=== PATIENT | female | born 1980 | race Caucasian/White ===

== ENCOUNTER → 2023-05-02 12:54 | Outpatient (CLI) | payer OTHER, SELFPAY ==
--- NOTE | 2023-05-02 13:06 | CT_ITS ---
FINAL REPORT CLINICAL HISTORY: LOOK AT LEFT SUBCLAVIAN AND THORACIC OUTLETS COMPARISON: None FINDINGS: Thin section axial CT images of the chest were obtained with contrast. 3D reformatted images were also obtained. This study was performed with techniques to keep radiation doses as low as reasonably achievable (ALARA). Individualized dose reduction techniques using automated exposure control or adjustment of mA and/or kV according to the patient's size were employed. There is no evidence of pulmonary embolism. There is no evidence of thoracic aortic aneurysm or dissection. Subclavian arteries appear normal. A portion of the right subclavian artery is suboptimally visualized secondary to streak artifact in the adjacent vein. There is no evidence of mediastinal or hilar mass or adenopathy. There is no evidence of pulmonary mass or nodule. Bilateral apical scarring. Limited images of the upper abdomen are unremarkable. Postcholecystectomy. IMPRESSION: No evidence of pulmonary embolism. Subclavian arteries appear normal. However, a portion of the right subclavian artery is suboptimally visualized secondary to streak artifact. Reviewed, Interpreted and Dictated by Amandeep Mahoney III, MD Transcribed by Kandy Villaseñor Authenticated and [facility]
[2023-05-02 13:33] LABS: Blood Urea Nitrogen 11 mg/dl (7-17); Estimated Glomerular Filt Rate 91 ml/min (>60); GFR (African American) 111 ML/MIN (>60)
== END ==
PROVIDERS: Visit Provider Internal Medicine
DX: R07.89 Other chest pain (principal); K21.9 Gastro-esophageal reflux disease without esophagitis; R20.0 Anesthesia of skin; R68.89 Other general symptoms and signs
CPT/HCPCS: 36415; 71275; 82565; 84520; Q9967

== ENCOUNTER 2023-06-13 07:36 | Day surgery (SDC) | payer OTHER, SELFPAY ==
[2023-06-13] VITALS (12 sets, daily range): BP systolic 128–147; BP diastolic 73–97; PULSE 73–98; RESP 17–18; O2SAT 97–100; BMI 25.5
--- NOTE | 2023-06-13 07:03 | IR_ITS ---
APPROVED REPORT Patient Location: Outpatient Employment Coach: ANTONIA Au RT (R) PROCEDURES Left heart catheterization Left ventriculogram Selective coronary angiogram INDICATION Angina pectoris, Abnormal stress test Informed consent was obtained prior to the procedure. COMPLICATIONS NONE Estimated Blood Loss: LESS THAN 10 ML TECHNIQUE One percent lidocaine used to anesthetize the right anterior aspect of the wrist. The right radial artery was accessed via the Seldinger technique. A 6 Thai sheath was placed in the right radial artery. 2.5 mg of Verapamil, 800 mcg of nitroglycerin, 1mg Lidocaine and 5000 U Heparin were given through the arterial sheath. The papa catheter was also used to perform left heart catheterization, left ventriculogram and selective coronary angiogram. At the end of the procedure the sheath was removed good hemostasis was achieved using Traclet band, patient was transferred to the postop holding area in stable condition. ANGIOGRAPHIC RESULTS The left main artery Normal The left anterior descending artery Normal The circumflex artery Normal The right coronary artery Dominant normal The SAGASTUME ventriculogram reveals Normal 65% The left ventricular end-diastolic pressure Normal 10 mmHg IMPRESSION Normal coronary arteries Normal ejection fraction Normal left ventricular end-diastolic pressure PLAN 1. Evaluation of noncardiac symptomatology Electronically signed by : Phuc Sierra MD 06/13/2023 09:41:23
[2023-06-13 08:07] LABS: Basophils % 0.5 % (0.1-2.0); Eosinophils # 0.2 K/mm3 (0.0-0.4); Eosinophils % 2.7 % (0.1-12.0); Hematocrit 44.1 % (37.0-47.0); Hemoglobin 14.5 g/dL (12.2-16.2); Lymphocytes # 1.7 K/mm3 (0.7-4.5); Mean Corpuscular HGB Conc 32.9 g/dL (31.8-35.4); Mean Corpuscular Hemoglobin 31.1 pg (27.0-31.2); Mean Corpuscular Volume 94.5 fl (81-99); Mean Platelet Volume 7.3 fl (7.4-10.4); Monocytes # 0.3 K/mm3 (0.1-1.0); Monocytes % 4.9 % (1.7-9.3); Neutrophils # 3.6 K/mm3 (1.8-7.8); Neutrophils % 62.9 % (37.0-80.0); Platelet Count 367 K/mm3 (142-424); Red Blood Count 4.67 M/mm3 (4.20-5.40); Red Cell Distribution Width 12.6 % (11.5-17.5); White Blood Count 5.8 K/mm3 (4.8-10.8)
[2023-06-13 08:40] LABS: Sodium 140 mmol/L (136-145)
[2023-06-13 08:41] LABS: Anion Gap 12.6 mEq/L (5-15); Blood Urea Nitrogen 9 mg/dl (7-17); Calcium 8.8 mg/dl (8.4-10.2); Carbon Dioxide 26 mmol/L (22.0-30.0); Chloride 105 mmol/L (98-107); Creatinine Clearance Estimated 97 mL/min (50-200); Estimated Glomerular Filt Rate 78 ml/min (>60); GFR (African American) 95 ML/MIN (>60); Glucose 91 mg/dl (74-100); Potassium 3.6 mmoL/L (3.5-5.1)
== END 2023-06-13 12:30 | disposition home or self-care (01) ==
PROVIDERS: Visit Provider Internal Medicine
DX: R94.39 Abnormal result of other cardiovascular function study (principal); Z79.899 Other long term (current) drug therapy; I20.8 Other forms of angina pectoris; K21.9 Gastro-esophageal reflux disease without esophagitis
CPT/HCPCS: 80048; 85025; 93458; 99152; C1725; C1769; J1644

== ENCOUNTER → 2023-06-20 14:28 | Outpatient (CLI) | payer OTHER, SELFPAY | PROVIDERS: PCP Nurse Practitioner Family; Visit Provider Nurse Practitioner | DX: R94.31 Abnormal electrocardiogram [ECG] [EKG] (principal); R00.2 Palpitations; R42 Dizziness and giddiness | CPT/HCPCS: 93270 ==